=== PATIENT | female | born 1940 | race Caucasian/White ===

== ENCOUNTER → 2016-07-02 | Outpatient (CLI) | payer MEDICARE, OTHER ==
--- NOTE | 2016-07-03 10:03 | KCIC ---
PROCEDURE Carotid Doppler exam HISTORY Carotid artery disease (no other provided history) COMPARISON None FINDINGS Multiple grayscale, color, duplex spectral analysis waveform images of the cervical arterial vasculature are submitted. Any determination of stenosis is based on NASCET criteria. No significant stenosis is demonstrated on grayscale or color images. There is no velocity elevation to suggest a hemodynamically significant stenosis. Left internal carotid artery is tortuous. There is antegrade flow of the vertebral arteries bilaterally. There is a node of the superior left neck on the order of 2 x 1.5 x 0.8 cm. Velocities in cm/sec are as follows: Right: CCA PSV 104 Maximal mid ICA PSV 74, EDV 19 External PSV 106 Vertebral PSV 75 Maximal ICA/CCA ratio 0.71 Left: CCA PSV 108 Maximal distal ICA PSV 151, EDV 37 External PSV 119 Vertebral PSV 59 Maximal ICA/CCA ratio 1.4 IMPRESSION 1. There is no evidence of a hemodynamically significant stenosis. Velocity elevation of the distal left internal carotid artery could be seen with 50-69 percent luminal diameter reduction although could be accentuated by tortuosity. 2. There is nonspecific, somewhat prominent node of the visualized superior left neck for which clinical followup advised. Electronically signed by: Manan Ferrer MD (Jul 03, 2016 10:01:26)
== END | disposition home or self-care (01) ==
LOC: KCIC US 15:23
PROVIDERS: ATTEND Family Medicine
DX: I65.23 Occlusion and stenosis of bilateral carotid arteries (principal); I77.1 Stricture of artery
CPT/HCPCS: 93880

== ENCOUNTER → 2017-12-04 | Outpatient (CLI) | payer BC ==
--- NOTE | 2017-12-04 16:57 | KCIC ---
Bilateral digital screening mammograms: Reason for examination: Routine screening. Comparison is made to previous studies dated 11/01/2015 and 09/07/2014. Interpretation is made with the benefit of CAD. The skin and nipples show no abnormalities. No abnormal lymph nodes are seen. The breast parenchyma is predominantly fatty. (Breast density: Category A.) There continued be small circumscribed densities bilaterally which have not changed. There are no new dominant masses, suspicious calcifications or architectural distortions. Impression: No evidence of malignancy. Recommend routine screening. BI-RADS Category 2: Benign. "Our facility is accredited by the [employer] Mammography [employer]." This patient's information has been entered into a reminder system for the patient to be notified with the results of her examination and a target date for the next mammogram. Electronically signed by: Christina Cabrera MD (12/04/2017 4:53 PM) [id number]
== END | disposition home or self-care (01) ==
LOC: KCIC MAMMO 11:17
PROVIDERS: ATTEND Family Medicine
DX: Z12.31 Encounter for screening mammogram for malignant neoplasm of breast (principal); I25.10 Atherosclerotic heart disease of native coronary artery without angina pectoris
CPT/HCPCS: 77067

== ENCOUNTER → 2018-12-10 | Outpatient (CLI) | payer BC ==
--- NOTE | 2018-12-10 16:55 | KCIC ---
Bilateral digital screening mammograms: Reason for examination: Routine screening. Comparison is made to previous studies dated 12/04/2017 and 11/01/2015. Interpretation is made with the benefit of CAD. The skin and nipples show no abnormalities. No abnormal lymph nodes are seen. The breast parenchyma is predominantly fatty. (Breast density: Category A.) There continue to be small circumscribed nodules bilaterally which are stable. There are no new dominant masses, suspicious calcifications or architectural distortions. Impression: No evidence of malignancy. Recommend routine screening. BI-RADS Category 2: Benign. "Our facility is accredited by the [employer] Mammography [employer]." This patient's information has been entered into a reminder system for the patient to be notified with the results of her examination and a target date for the next mammogram. Electronically signed by: Christina Cabrera MD (12/10/2018 4:52 PM) [id number]
== END | disposition home or self-care (01) ==
LOC: KCIC MAMMO 11:07
PROVIDERS: ATTEND Family Medicine
DX: Z12.31 Encounter for screening mammogram for malignant neoplasm of breast (principal); N63.20 Unspecified lump in the left breast, unspecified quadrant; N63.10 Unspecified lump in the right breast, unspecified quadrant
CPT/HCPCS: 77067